=== PATIENT | female | born 1950 | race Caucasian/White ===

== ENCOUNTER 2024-06-05 10:39 | Emergency (ER) | payer OTHER, SELFPAY ==
--- NOTE | 2024-06-05 10:52 | DI.RAD.S_ITS ---
PROCEDURE: XR FOOT LT MIN 3V INDICATIONS: fall in shower t-1. TECHNIQUE: 3 views of the foot were acquired. COMPARISON: None. FINDINGS: Bones: No fractures or dislocations. No suspicious bony lesions. Soft tissues: No tibiotalar joint effusion. Achilles tendon appears normal. IMPRESSION: No acute bony abnormality. Approved by: Elio Blevins M.D. on 06/05/2024 at 12:55
--- NOTE | 2024-06-05 10:52 | DI.RAD.S_ITS ---
PROCEDURE: XR KNEE LT 3V INDICATIONS: fall in shower t-1. TECHNIQUE: 3 views of the knee were acquired. COMPARISON: None. FINDINGS: Bones: No fractures or dislocations. No suspicious bony lesions. Soft tissues: No joint effusion. No suspicious soft tissue calcifications. IMPRESSION: No acute bony abnormality or significant effusion. Unremarkable flabella Approved by: Elio Blevins M.D. on 06/05/2024 at 12:57
--- NOTE | 2024-06-05 10:52 | DI.RAD.S_ITS ---
PROCEDURE: XR ANKLE LT MIN 3V INDICATIONS: fall in shower t-1. TECHNIQUE: 3 views of the ankle were acquired. COMPARISON: [facility], CR, XR KNEE LT 3V, 06/05/2024, 11:08. [facility], CR, XR FOOT LT MIN 3V, 06/05/2024, 11:08. FINDINGS: Bones: No fractures or dislocations. Ankle mortise is normally aligned. No suspicious bony lesions. Soft tissues: No tibiotalar joint effusion. Achilles tendon appears normal. IMPRESSION: No acute bony abnormality or significant effusion. Approved by: Elio Blevins M.D. on 06/05/2024 at 12:54
[2024-06-05 10:53] VITALS: BP 187/87; PULSE 78; RESP 14; TEMP 36.6; O2SAT 99; BMI 29.7
--- NOTE | 2024-06-05 11:11 | ED.FALL ---
HPI - Fall General Chief Complaint: Fall Stated Complaint: Fell left side pain ,foot ,knee pain Time Seen by Provider: 06/05/24 11:04 Source: patient Mode of arrival: Ambulatory History of Present Illness HPI Narrative: Patient here with granddaughters. Patient is visiting locally from out of town, she is from [place]. She has a nurse. She slipped in the shower yesterday, she twisted her left knee and ankle and foot. She is wrapped it with an Jake wrap. She has been ambulatory with this. Her pain is controlled ibuprofen/Tylenol she states. She does not want anything for pain. She states her blood pressure here is her baseline. This is not new. Denies any head or neck injury. No loss of consciousness. Related Data Allergies Allergy/AdvReac Type Severity Reaction Status Date / Time No Known Drug Allergies Allergy Verified 06/05/24 10:57 Review of Systems Review of Systems Narrative: GENERAL: negative chills, fatigue, malaise, fever, sweats. HEENT: negative sinus pain, ear pain, sore throat RESPIRATORY: negative dyspnea, cough CARDIOVASCULAR: negative chest pain, palpitations GASTROINTESTINAL: negative nausea, vomiting, abdominal pain : negative dysuria, frequency, hematuria MUSCULOSKELETAL: Positive muscle or bony pain SKIN: negative rash, skin lesions NEUROLOGIC: negative weakness, numbness ROS Unobtainable: All systems reviewed & are unremarkable except as noted in HPI and below Patient History Social History Smoking Status: Never smoker Smoking Status: Never smoker alcohol intake frequency: 0-2 drinks per day Substance Use Type: does not use Exam Narrative Exam Narrative: GENERAL: in no distress, not toxic not dyspneic HEAD: Normocephalic. EXTREMITIES: No gross deformities. Examination left lower extremity. Thigh to toes exposed. Strong pedal pulse brisk cap refills foot warm soft and pink. Mild tenderness to the dorsum of the foot but no bruising or edema. Able to stand and bear weight with slight antalgic gait without assist. Nontender ankle with full flexion-extension without pain. Knee is nontender. Able to fully extend and flex past 90?. No effusion palpable. BACK: No flank tenderness. NEURO: AOx4. SKIN: Warm and dry PSYCH: Not anxious, is cooperative Initial Vital Signs Initial Vital Signs: Vital Signs Temperature 97.9 F 06/05/24 10:53 Pulse Rate 78 06/05/24 10:53 Respiratory Rate 14 06/05/24 10:53 Blood Pressure 187/87 H 06/05/24 10:53 Pulse Oximetry 99 06/05/24 10:53 Oxygen Delivery Method Room Air 06/05/24 10:53 Procedures Orthopedic Splinting/Casting Injury #1: Time of procedure: 13:57 Side: left Lower Extremity Injury Location: foot Lower Extremity Immobilizer: boot orthosis Other Orthopedic Equipment: crutches Post splinting neuro exam: intact Post splinting vascular exam: intact Placed by: Nursing Course Orders Ordered: ED Orders 06/05/24 10:52 XR ankle LT min 3V Stat XR foot LT min 3V Stat XR knee LT 3V Stat Vital Signs Vital signs: Vital Signs - 8 hr 06/05/24 10:53 Temperature 97.9 F Pulse Rate 78 Respiratory Rate 14 Blood Pressure 187/87 H Pulse Oximetry 99 Oxygen Delivery Method Room Air MDM - Fall Imaging Data Extremity x-ray #1: Radiologist's Impression: [address] [address] XRay Report Signed Patient: Susi Weinstein MR#: [id number] : 1950 Acct:[id number] Age/Sex: 74 / F Date of Service: 06/05/24 Loc: ED Accession Number: [id number] Procedure: XR knee LT 3V Ordering Provider: Sarkis Brooks MD PROCEDURE: XR KNEE LT 3V INDICATIONS: fall in shower t-1. TECHNIQUE: 3 views of the knee were acquired. COMPARISON: None. FINDINGS: Bones: No fractures or dislocations. No suspicious bony lesions. Soft tissues: No joint effusion. No suspicious soft tissue calcifications. IMPRESSION: No acute bony abnormality or significant effusion. Unremarkable flabella Approved by: Elio Blevins M.D. on 06/05/2024 at 12:57 Extremity x-ray #2: Radiologist's Impression: [address] [address] XRay Report Signed Patient: Susi Weinstein MR#: [id number] : 1950 Acct:[id number] Age/Sex: 74 / F Date of Service: 06/05/24 Loc: ED Accession Number: [id number] Procedure: XR foot LT min 3V Ordering Provider: Sarkis Brooks MD PROCEDURE: XR FOOT LT MIN 3V INDICATIONS: fall in shower t-1. TECHNIQUE: 3 views of the foot were acquired. COMPARISON: None. FINDINGS: Bones: No fractures or dislocations. No suspicious bony lesions. Soft tissues: No tibiotalar joint effusion. Achilles tendon appears normal. IMPRESSION: No acute bony abnormality. Approved by: Elio Blevins M.D. on 06/05/2024 at 12:55 Extremity x-ray #3: Radiologist's Impression: [address] [address] XRay Report Signed Patient: Susi Weinstein MR#: [id number] : 1950 Acct:[id number] Age/Sex: 74 / F Date of Service: 06/05/24 Loc: ED Accession Number: [id number] Procedure: XR ankle LT min 3V Ordering Provider: Sarkis Brooks MD PROCEDURE: XR ANKLE LT MIN 3V INDICATIONS: fall in shower t-1. TECHNIQUE: 3 views of the ankle were acquired. COMPARISON: [facility], CR, XR KNEE LT 3V, 06/05/2024, 11:08. [facility], CR, XR FOOT LT MIN 3V, 06/05/2024, 11:08. FINDINGS: Bones: No fractures or dislocations. Ankle mortise is normally aligned. No suspicious bony lesions. Soft tissues: No tibiotalar joint effusion. Achilles tendon appears normal. IMPRESSION: No acute bony abnormality or significant effusion. Approved by: Elio Blevins M.D. on 06/05/2024 at 12:54 [facility] Narrative Medical decision making narrative: Patient here with granddaughters. Patient is visiting locally from out of town, she is from [place]. She has a nurse. She slipped in the shower yesterday, she twisted her left knee and ankle and foot. She is wrapped it with an Jake wrap. She has been ambulatory with this. Her pain is controlled ibuprofen/Tylenol she states. She does not want anything for pain. She states her blood pressure here is her baseline. This is not new. Denies any head or neck injury. No loss of consciousness. After history and exam, x-ray left knee left ankle left foot, patient does not want anything for pain. [facility] Medical records reviewed: No recent visit for this complaint Differential considered: Includes but not limited to ankle/foot/knee fracture dislocation contusion sprain strain Imaging studies independently reviewed: X-rays left foot ankle and knee no acute finding Consultations: 1:[address] Blevins, radiologist, images of left knee foot and ankle, no acute finding. Treatments: None indicated Re-evaluations: 2:00 p.m.. Updated patient results. Tolerated walking boot and crutches very well. Return precautions reviewed. Nontoxic at discharge. She will return back to [place] and follow up with the primary care. Not toxic at discharge. She desires discharge home. Pain is controlled. Discussion: Appropriate for discharge home exam and imaging studies are reassuring. Return precautions reviewed. Leg and foot neurovascularly intact. Pain is controlled. She desires discharge home Diagnosis: Foot sprain knee strain Discharge Plan Departure Patient Disposition: Home Clinical Impression: Sprain of foot, left Qualifiers: Encounter type: initial encounter Qualified Code(s): S93.602A - Unspecified sprain of left foot, initial encounter Strain of left knee Qualifiers: Encounter type: initial encounter Qualified Code(s): S86.912A - Strain of unspecified muscle(s) and tendon(s) at lower leg level, left leg, initial encounter Instructions: DI for Knee Pain, DI for Foot Sprain Activity Restrictions/Additional Instructions: Your exam and imaging studies are reassuring. Your likely strained your knee and sprained your foot. Please see your family doctor when you return home to have re-evaluation. You may need repeat x-rays if not improving 7-10 days. Walking boot and crutches are provided for you to help ambulate and you may wean off as tolerated. Continue Tylenol or ibuprofen for pain. Return if worse if any questions or concerns. Referrals: Sammie,Doctor MD [Primary Care Provider] - Stand Alone Forms: Patient Portal/API
--- NOTE | 2024-06-05 11:11 | PC.NURSE ---
Pain with ambulation in front and back of knee. Patient reports pain in left foot top and medial malleolus
[2024-06-05 13:43] VITALS: BP 191/91; PULSE 74; O2SAT 98
== END 2024-06-05 14:03 | disposition home or self-care (01) ==
PROVIDERS: Emergency Provider Emergency Medicine
DX: S93.602A Unspecified sprain of left foot, initial encounter (principal); S86.912A Strain of unspecified muscle(s) and tendon(s) at lower leg level, left leg, initial encounter; W18.2XXA Fall in (into) shower or empty bathtub, initial encounter
CPT/HCPCS: 73562; 73610; 73630; 99283